=== PATIENT | male | born 1940 | race African-American/Black ===

== ENCOUNTER 2021-09-03 17:50 | Emergency (ER) | payer OTHER ==
[~2021-09-03] VITALS: Ht 193 cm; Wt 99.8 kg
[~2021-09-03 17:50] MED LIST: AMLO-496; HYDR-4298; INDO50CA82; METO1TAB9; POTASSIUM; SIMVISTATIN; TERA2CAP45; [UNRECOGNIZED DRUG - CODE]
[2021-09-03] MEDS ORDERED: DOPamine 1600mCg/ml 400MG/250ml NSorD5 KIT/BAG IV ONE (17:59)
[2021-09-03] MEDS ORDERED: ATROPINE SULF 1 MG/10ml SYR IM ONE (17:59)
[2021-09-03] MEDS ORDERED: EPINEPHrine HCL 1 MG/10 ML SYRG IV ONE (17:59)
[2021-09-03 21:26] LABS: Eosinophils # (auto) 0 10 ^3/uL (0-0.8); Mean Corpuscular Hemoglobin 24.3 pg (28.0-32.0); Monocytes # (auto) 0.8 10 ^3/uL (0-1.3)
[2021-09-03 21:28] LABS: Basophils # (auto) 0 10 ^3/uL (0-0.2); Basophils % (auto) 0.3 % (0.0-2.0); Eosinophils % (auto) 0.1 % (0.0-7.0); Hemoglobin 11.2 g/dL (13.5-17.5); Lymphocytes # (auto) 0.6 10 ^3/uL (0.4-5.4); Lymphocytes % (auto) 6.6 % (10.0-50.0); Mean Corpuscular Hgb Conc. 31.8 g/dL (32.0-36.0); Mean Corpuscular Volume 76.3 fL (80.0-100.0); Monocytes % (auto) 8.6 % (0.0-12.0); Neutrophils # (auto) 7.9 10 ^3/uL (1.6-8.6); Neutrophils % (auto) 84.4 % (37.0-80.0); Red Cell Distribution Width 18.1 % (11.8-14.3); White Blood Cell 9.4 10^3/uL (4.4-10.8)
[2021-09-03 21:41] LABS: Albumin 2.9 g/dL (3.4-5.0); Anion Gap 8 (5-15); Blood Alcohol < 3.0 mg/dL (0-5); Blood Urea Nitrogen 30 mg/dL (7-18); Calcium 8.2 mg/dL (8.5-10.1); Carbon Dioxide 25 mmol/L (21-32); Chloride 108 mmol/L (98-107); Glucose 180 mg/dL (74-106); Potassium 3.9 mmol/L (3.5-5.1); Sodium 141 mmol/L (136-145)
[2021-09-03 21:44] LABS: Alanine Aminotransferase 11 U/L (16-61); Alkaline Phosphatase 100 U/L (45-117); Aspartate Aminotransferase 26 U/L (15-37); BUN/Creatinine Ratio 9.3; Bilirubin, Total 0.8 mg/dL (0.2-1.0); GFR African American 24 mL/min; GFR Non-African American 20 mL/min; Total Protein 7.4 g/dL (6.4-8.2)
[2021-09-03 21:45] LABS: Lactic Acid w/Reflex 3.4 mmol/L (0.4-2.0)
[2021-09-03 22:36] LABS: Urine Bacteria FEW /hpf (None Seen); Urine Blood 1+ /uL (Negative); Urine Specific Gravity 1.016 (1.001-1.035); Urine WBC 292 /hpf (0 - 3); Urine WBC Clumps PRESENT /hpf (None Seen)
[2021-09-03 22:54] LABS: Amphetamine Screen, Urine NEGATIVE (NEGATIVE); Barbiturate Scree,Urine NEGATIVE (NEGATIVE); Benzodiazephine Screen, Urine NEGATIVE (NEGATIVE); Cannabinoid Screen, Urine NEGATIVE (NEGATIVE); Cocaine Screen, Urine NEGATIVE (NEGATIVE); Opiate Scree,Urine NEGATIVE (NEGATIVE); Phencyclidine Screen, Urine NEGATIVE (NEGATIVE)
[2021-09-03] MEDS ORDERED: PROPOFOL 100 ML IV ONE (23:59)
[2021-09-04] MEDS ORDERED: ETOMIDATE (2MG/ML) 20ML VIAL IV ONE
[2021-09-04] MEDS ORDERED: SUCCINYLCHOLINE CHLORIDE 20 MG/ML 10ML VIAL IV ONE
[2021-09-04] MEDS ORDERED: NOREPINEPHRINE 8 MG/250ML KIT 250 ML IV ONE ×2 (00:03→00:05)
[2021-09-04 00:05] VITALS: BP 99/33
[2021-09-04] MEDS ORDERED: NOREPINEPHRINE 8 MG/250ML KIT 250 ML IV SCH ×2 (00:15)
[2021-09-04] MEDS ORDERED: PROPOFOL 100 ML IV SCH (00:15)
[2021-09-04 00:40] VITALS: BP 64/40
[2021-09-04] MEDS ORDERED: EPINEPHrine HCL 250 ML IV ONE (01:01)
[2021-09-04] MEDS ORDERED: EPINEPHrine HCL 1 MG/10 ML SYRG ONE (01:09)
== END 2021-09-04 01:14 ==
LOC: ER 17:58
DX: I46.9 Cardiac arrest, cause unspecified (principal); R41.82 Altered mental status, unspecified; E11.9 Type 2 diabetes mellitus without complications; E78.5 Hyperlipidemia, unspecified; I10 Essential (primary) hypertension; Z20.822 Contact with and (suspected) exposure to COVID-19; W06.XXXA Fall from bed, initial encounter; Y93.89 Activity, other specified; Y92.89 Other specified places as the place of occurrence of the external cause; Y99.8 Other external cause status
CPT/HCPCS: 36415; 36600; 70450; 71045; 80053; 80307; 80320; 81001; 82805; 82962; 83605; 84484; 85025; 87040; 87070; 87077; 87186; 87205; 87426; 93005; 99291; 99292; J0171; J0330; J1265; J2704; 94002